=== PATIENT | male | born 1950 | race Caucasian/White ===

== ENCOUNTER 2019-06-24 12:03 | Emergency (ER) | payer BC ==
[~2019-06-24] VITALS: Ht 172.7 cm; Wt 113.4 kg
[2019-06-24] MEDS: IV NORMAL SALINE 1000 ML BAG IV ONE (12:25)
[2019-06-24 12:31] LABS: BASOPHILS % (AUTO) 0.5 % (0.0-2.0); EOSINOPHILS # (AUTO) 0.2 K/uL (0.0-0.7); EOSINOPHILS % (AUTO) 3.4 % (0.0-7.0); HEMATOCRIT 41.8 % (36.7-47.1); HEMOGLOBIN 14.1 g/dL (12.5-16.3); LYMPHOCYTES # (AUTO) 2.2 K/uL (20.0-40.0); LYMPHOCYTES % (AUTO) 30.8 % (20.5-51.5); MEAN CORPUSCULAR HGB CONC 34 g/dL (32.5-36.3); MEAN CORPUSCULAR VOLUME 94.6 fL (73.0-96.2); MONOCYTES # (AUTO) 0.5 K/uL (2.0-10.0); MONOCYTES % (AUTO) 7.6 % (0.0-11.0); NEUTROPHILS # (AUTO) 4.1 K/uL (1.8-8.9); NEUTROPHILS % (AUTO) 57.7 % (38.5-71.5); PLATELET COUNT (AUTO) 257 K/uL (152-348); RED BLOOD CELL COUNT(AUTO) 4.42 MIL/uL (4.06-5.63); WHITE BLOOD COUNT (AUTO) 7.1 K/uL (3.6-10.2)
[2019-06-24 12:33] LABS: *BILIRUBIN,URIN 1+ (NEGATIVE); *BLOOD, URINE 3+ (NEGATIVE); *CLARITY,URINE CLOUDY (CLEAR); *COLOR,URINE DARK YELLOW (YELLOW); *KETONES,URINE NEGATIVE (NEGATIVE); LEUKOCYTE ESTERASE ,URINE TRACE (NEGATIVE); NITRITE, URINE NEGATIVE (NEGATIVE); UGLUCOSE NEGATIVE (NEGATIVE)
[2019-06-24 12:37] LABS: CREATININE 1.3 mg/dL (0.6-1.3); POTASSIUM 3.8 mmol/L (3.5-5.1)
[2019-06-24 12:39] LABS: BACTERIA,URINE FEW /HPF (NONE SEEN); RBC,URINE 80-100 /HPF (0-3); SQUAMOUS EPITHELIAL CELL,UR FEW /HPF (NONE SEEN)
[2019-06-24] MEDS ORDERED: VITAMIN D (12:48)
[2019-06-24] MEDS ORDERED: FENOFIBRATE (12:48)
[2019-06-24] MEDS ORDERED: METF-440 PO (12:48)
[2019-06-24] MEDS ORDERED: LISINOPRIL (12:48)
[2019-06-24] MEDS ORDERED: SERT100T PO (12:48)
[2019-06-24] MEDS ORDERED: CYCLOBENZAPRINE (12:48)
[2019-06-24] MEDS ORDERED: ATEN50TA PO (12:48)
[2019-06-24] MEDS ORDERED: ATEN25TA PO (12:48)
[2019-06-24] MEDS ORDERED: LIPITOR (12:48)
[2019-06-24] MEDS ORDERED: ASPI81TA31 PO (12:48)
[2019-06-24] MEDS ORDERED: AMLODIPINE PO (12:48)
[2019-06-24] MEDS ORDERED: MULT1TAB73 PO (12:48)
--- NOTE | 2019-06-24 14:14 | NUR ---
Patient is resting comfortably on gurney while watching bedside TV, pending results and disposition@this time.
--- NOTE | 2019-06-24 16:26 | NUR ---
Patient discharged to home in stable conditon. Written and verbal after care instructions given. Patient verbalizes understanding of instructions. Stressed follow up with pmd/urologist.
--- NOTE | 2019-06-24 16:26 | NUR ---
IV removed. Catheter intact and site benign. Pressure and 4x4 gauze applied to site. No bleeding noted.
[2019-06-24 16:27] VITALS: BP 137/89
== END 2019-06-24 16:28 | disposition home or self-care (01) ==
LOC: ER 12:03
DX: N20.1 Calculus of ureter (principal); R31.9 Hematuria, unspecified; E78.5 Hyperlipidemia, unspecified; I10 Essential (primary) hypertension; E11.9 Type 2 diabetes mellitus without complications; Z79.82 Long term (current) use of aspirin; Z93.6 Other artificial openings of urinary tract status; Z79.899 Other long term (current) drug therapy
CPT/HCPCS: 36415; 85025; 87086; A4663; J7030